=== PATIENT | female | born 1945 | race Caucasian/White ===

== ENCOUNTER → 2017-05-03 | Outpatient (CLI) | payer MEDICARE ==
--- NOTE | 2017-05-04 18:00 | EKG ---
Date Performed: 05/03/2017 Time Performed: 10:03:54 PTAGE: 71 years EKG: Sinus rhythm with 1st degree A-V block. Septal T wave changes are nonspecific Abnormal ECG Compared to PREVIOUS TRACING , [place] interval is slightly longer otherwise no change. PREVIOUS TRACIN11/21/1998 10.14 DOCTOR: Lane Rizzo Interpretating Date/Time 05/04/2017 17:58:35
== END ==
LOC: HCAV 09:57
PROVIDERS: ATTEND Specialist
DX: R06.00 Dyspnea, unspecified (principal); A31.0 Pulmonary mycobacterial infection
CPT/HCPCS: 93005